=== PATIENT | male | born 1960 | race Caucasian/White ===

== ENCOUNTER 2017-06-25 12:25 | Inpatient (IN) | payer OTHER ==
[~2017-06-25] VITALS: Ht 172.7 cm; Wt 80.0 kg
[2017-06-25] MEDS ORDERED: LORazepam 2 MG/ML, 1ML IVPush ONE ×2 (12:30→13:00)
[2017-06-25] MEDS ORDERED: morphine SULFATE 10 MG/ML, 1ML IVPush ONE (12:30)
[2017-06-25] MEDS ORDERED: ASPIRIN 81 MG TABLET CHEW PO ONE (12:30)
[2017-06-25] MEDS ORDERED: HEPARIN 1,000 UNITS/ML, 10ML IV STA (12:30)
[2017-06-25] MEDS ORDERED: ASPIRIN 325 MG TABLET PO STA (12:46)
[2017-06-25] MEDS ORDERED: LORazepam 2 MG/ML, 1ML ONE (12:47)
[2017-06-25] MEDS ORDERED: TICAGRELOR 90 MG TABLET ONE ×2 (12:47→13:32)
[2017-06-25] MEDS ORDERED: VERAPAMIL 2.5 MG/ML, 2ML ONE (12:47)
[2017-06-25] MEDS ORDERED: MIDAZOLAM 1 MG/ML, 5ML ONE (12:47)
[2017-06-25] MEDS ORDERED: FENTANYL PF 100 MCG/2ML ONE (12:47)
[2017-06-25] MEDS ORDERED: MORPHINE SULFATE 4 MG/ML, 1ML ONE (12:47)
[2017-06-25] MEDS ORDERED: BIVALIRUDIN 250 MG ONE ×2 (12:48→13:35)
[2017-06-25] MEDS ORDERED: HEPARIN 1,000 UNITS/ML, 10ML ONE (12:48)
[2017-06-25] MEDS ORDERED: LIDOCAINE 2%, 10ML ONE ×2 (12:48)
[2017-06-25 12:58] LABS: BASOPHILS # (AUTO) 0.04 x10^3/uL (0-0.1); BASOPHILS % (AUTO) 0 % (0-1); EOSINOPHILS # (AUTO) 0.02 x10^3/uL (0-0.4); EOSINOPHILS % (AUTO) 0 % (1-7); LYMPHOCYTES # (AUTO) 1.14 x10^3/uL (1-3.4); LYMPHOCYTES % (AUTO) 11 % (22-44); MD NO; MEAN CORPUSCULAR HGB CONC 34.4 g/dL (33.2-36.2); MEAN CORPUSCULAR VOLUME 95.8 fL (81-97); MEAN PLATELET VOLUME 8.1 fL (7.4-10.4); MONOCYTES # (AUTO) 0.37 x10^3/uL (0.2-0.8); MONOCYTES % (AUTO) 4 % (2-9); NEUTROPHILS # (AUTO) 9.01 x10^3/uL (1.8-6.8); NEUTROPHILS % (AUTO) 85 % (42-75); PLATELET COUNT 274 x10^3/uL (130-400); RED BLOOD COUNT 5.24 x10^6/uL (4.38-5.82); RED CELL DISTRIBUTION WIDTH 13.2 % (9.4-14.8)
[2017-06-25] MEDS ORDERED: ASPIRIN 81 MG TABLET CHEW ONE (12:59)
[2017-06-25] MEDS ORDERED: HEPARIN 5,000 UNITS/ML, 1ML ONE (12:59)
[2017-06-25] MEDS ORDERED: NITROGLYCERIN 0.4 MG/SPRAY SL PRN (13:00)
[2017-06-25] MEDS ORDERED: NITROGLYCERIN 0.4 MG BOTTLE (25 TABS) SL PRN ×2 (13:00)
[2017-06-25] MEDS ORDERED: LISINOPRIL 20 MG TABLET PO SCH (13:00)
[2017-06-25] MEDS ORDERED: BISACODYL 10 MG SUPP PR PRN (13:00)
[2017-06-25] MEDS ORDERED: METOPROLOL 1 MG/ML, 5ML IVPush PRN (13:00)
[2017-06-25] MEDS ORDERED: ONDANSETRON 2MG/ML, 2ML IVPush PRN (13:00)
[2017-06-25] MEDS ORDERED: BISACODYL 5 MG EC TABLET PO PRN (13:00)
[2017-06-25] MEDS ORDERED: morphine SULFATE 10 MG/ML, 1ML IVPush PRN (13:00)
[2017-06-25] MEDS ORDERED: ACETAMINOPHEN 325 MG TABLET PO PRN (13:00)
[2017-06-25] MEDS ORDERED: ZOLPIDEM 5MG TABLET PO PRN (13:00)
[2017-06-25 13:05] LABS: INTERNATIONAL NORMALIZED RATIO 1.01 (0.93-1.1); PROTHROMBIN TIME 10.5 Seconds (9.6-11.5)
[2017-06-25 13:19] LABS: CHOLESTEROL, TOTAL 230 mg/dL (140-239); TRIGLYCERIDES 179 mg/dL (50-200); VLDL CHOLESTEROL 36 mg/dL (0-25)
[2017-06-25 13:22] LABS: CHOL/HDL RATIO 6.1; HDL CHOL % 17 % (26-37); HDL CHOLESTEROL (DIRECT) 38 mg/dL (40-60); LDL CHOLESTEROL,CALCULATED 156 mg/dL (54-169); LDL/HDL RATIO 4.1 (0.5-3.0)
[2017-06-25 13:24] LABS: TROPONIN I 0.903 ng/mL (0.000-0.045)
[2017-06-25] MEDS ORDERED: ATROPINE SYRINGE 0.1 MG/ML, 10ML ONE (13:29)
[2017-06-25] MEDS ORDERED: PLEASE ENTER HEIGHT AND WEIGHT MC SCH (13:30)
[2017-06-25] MEDS ORDERED: BIVALIRUDIN 250 MG in DEXTROSE 5% 50 ML IV SCH (13:31)
[2017-06-25] MEDS: SODIUM CHLORIDE 0.9% 1,000 ML IV SCH ×2 (14:59→21:54)
[2017-06-25] MEDS: METOPROLOL TARTRATE 25 MG TABLET PO SCH (18:28)
[2017-06-25] MEDS ORDERED: TRAZ50TA18 PO (21:16)
[2017-06-25] MEDS ORDERED: PARO40TA3 PO (21:16)
[2017-06-25] MEDS: ATORVASTATIN 80 MG TABLET PO SCH (21:30)
[2017-06-25] MEDS: TICAGRELOR 90 MG TABLET PO SCH (21:30)
[2017-06-25] MEDS ORDERED: TRAZODONE 100MG TABLET ONE (21:51)
[2017-06-25] MEDS: PAROXETINE 20 MG TABLET PO SCH (21:55)
[2017-06-25] MEDS: TRAZODONE 50MG TABLET PO PRN (21:56)
[2017-06-26 04:38] LABS: ALBUMIN 3.1 g/dL (3.4-5.0); ANION GAP 8 mmol/L (5-15); CALCIUM 8.8 mg/dL (8.5-10.1); CHLORIDE 110 mmol/L (98-107); CREATININE 0.95 mg/dL (0.7-1.3)
[2017-06-26] MEDS: METOPROLOL TARTRATE 25 MG TABLET PO SCH (06:16)
[2017-06-26] MEDS: PAROXETINE 20 MG TABLET PO SCH (07:53)
[2017-06-26] MEDS: ASPIRIN 81 MG TABLET EC PO SCH (07:53)
[2017-06-26] MEDS: TICAGRELOR 90 MG TABLET PO SCH ×2 (07:53→20:49)
[2017-06-26] MEDS: METOPROLOL SUCCINATE 25 MG TAB.ER.24H PO SCH (08:00)
[2017-06-26] MEDS: LISINOPRIL 5 MG TABLET PO SCH (09:00)
[2017-06-26] MEDS ORDERED: ASPIRIN 325 MG TABLET EC PO SCH (09:00)
[2017-06-26 11:03] VITALS: BP 103/70
[2017-06-26 13:18] VITALS: BP 101/65
[2017-06-26 19:45] VITALS: BP 107/71
[2017-06-26] MEDS: ATORVASTATIN 80 MG TABLET PO SCH (20:49)
[2017-06-26] MEDS: TRAZODONE 50MG TABLET PO PRN (22:16)
[2017-06-27 02:06] VITALS: BP 105/77
[2017-06-27] MEDS: METOPROLOL SUCCINATE 25 MG TAB.ER.24H PO SCH (05:51)
[2017-06-27] MEDS: ASPIRIN 81 MG TABLET EC PO SCH (09:02)
[2017-06-27] MEDS: LISINOPRIL 5 MG TABLET PO SCH (09:02)
[2017-06-27] MEDS: PAROXETINE 20 MG TABLET PO SCH (09:02)
[2017-06-27] MEDS: TICAGRELOR 90 MG TABLET PO SCH (09:02)
[2017-06-27 09:04] VITALS: BP 112/71
[2017-06-27] MEDS ORDERED: ATOR-2 PO (11:09)
[2017-06-27] MEDS ORDERED: METO25TA91 PO (11:09)
[2017-06-27] MEDS ORDERED: TICA90TA PO (11:09)
[2017-06-27] MEDS ORDERED: ASPI-621 PO (11:09)
[2017-06-27] MEDS ORDERED: LISI5TAB7 PO (11:09)
[2017-06-27] MEDS ORDERED: PNEUMOCOCCAL 23 VACCINE IM-VACC ONE (13:00)
== END 2017-06-27 13:10 | disposition home or self-care (01) | DRG 247 ==
LOC: ED 12:54 → EDIP 12:55 → ED 13:57 → CCU 14:31 → 5SO 06-26 10:52
PROVIDERS: ADMIT Internal Medicine Cardiovascular Disease; ATTEND Internal Medicine Cardiovascular Disease
PROC: 027034Z Dilation of Coronary Artery, One Artery with Drug-eluting Intraluminal Device, Percutaneous Approach (ICD-10-PCS; principal; 2017-06-25)
PROC: 4A023N7 Measurement of Cardiac Sampling and Pressure, Left Heart, Percutaneous Approach (ICD-10-PCS; 2017-06-25)
PROC: B2111ZZ Fluoroscopy of Multiple Coronary Arteries using Low Osmolar Contrast (ICD-10-PCS; 2017-06-25)
DX: I21.19 ST elevation (STEMI) myocardial infarction involving other coronary artery of inferior wall (principal); I25.82 Chronic total occlusion of coronary artery; I11.9 Hypertensive heart disease without heart failure; E78.5 Hyperlipidemia, unspecified; F17.200 Nicotine dependence, unspecified, uncomplicated; F41.0 Panic disorder [episodic paroxysmal anxiety]; F32.9 Major depressive disorder, single episode, unspecified; I25.10 Atherosclerotic heart disease of native coronary artery without angina pectoris; I25.2 Old myocardial infarction; I45.10 Unspecified right bundle-branch block; Z79.82 Long term (current) use of aspirin; Z79.899 Other long term (current) drug therapy
CPT/HCPCS: 36415; 71045; 80047; 80048; 80061; 82040; 84484; 85025; 85610; 85730; 87081; 90732; 93005; 93306; 93454; 96374; 96375; 99156; C1760; C1769; C1894; J0461; J0583; J1644; J2250; J3010; J3490; C1725; C1874; C1887; J2060; J2270; J7030

== ENCOUNTER 2018-06-07 09:03 | Outpatient (CLI) | payer OTHER ==
[~2018-06-07 09:03] MED LIST: ASPI81TA45 PO; ATOR-2 PO; LISI5TAB7 PO; METO25TA91 PO; PARO40TA3 PO; TICA90TA PO; TRAZ50TA66 PO
== END 2018-06-07 23:59 | disposition home or self-care (01) ==
LOC: CFH 09:03
PROVIDERS: ATTEND Internal Medicine Cardiovascular Disease
DX: I21.3 ST elevation (STEMI) myocardial infarction of unspecified site (principal); I11.9 Hypertensive heart disease without heart failure; I25.10 Atherosclerotic heart disease of native coronary artery without angina pectoris; Z72.0 Tobacco use
CPT/HCPCS: 0399T; 93306